=== PATIENT | female | born 1980 | race Caucasian/White ===

== ENCOUNTER 2018-01-04 18:11 | Inpatient (IN) | payer MEDICAID ==
[~2018-01-04] VITALS: Ht 162.6 cm; Wt 128.4 kg
[~2018-01-04 18:11] MED LIST: FERR325E14 PO
[2018-01-04] MEDS ORDERED: PREN-380 PO (19:12)
[2018-01-04] MEDS ORDERED: PROMETHAZINE 25 MG/ML VIAL IVP PRN (19:15)
[2018-01-04] MEDS ORDERED: METHYLERGONOVINE 0.2 MG/ML AMP IM PRN (19:15)
[2018-01-04] MEDS ORDERED: OXYTOCIN 20 UNITS in LACTATED RINGERS 1,000 ML IV SCH ×2 (19:15→19:19)
[2018-01-04] MEDS ORDERED: NALBUPHINE 10 MG/ML AMP IVP PRN ×2 (19:15→19:20)
[2018-01-04] MEDS ORDERED: OXYTOCIN 10 UNITS/ML VIAL IM SCH (19:15)
[2018-01-04] MEDS ORDERED: CARBOPROST 250 MCG/ML AMP IM PRN (19:15)
[2018-01-04 20:00] LABS: BASOPHILS % (AUTO) 0.3 % (0.0-2.0); EOSINOPHILS # (AUTO) 0.2 K/uL (0-0.4); EOSINOPHILS % (AUTO) 1.9 % (0.0-4.0); HEMATOCRIT 36.2 % (36-48); HEMOGLOBIN 11.5 g/dL (12.0-16.0); LYMPHOCYTES # (AUTO) 2.4 K/uL (2.5-16.5); LYMPHOCYTES % (AUTO) 29.6 % (20.5-51.1); MEAN CORPUSCULAR HEMOGLOBIN 26 pg (27-31); MEAN CORPUSCULAR HGB CONC 32 g/dL (33-37); MEAN CORPUSCULAR VOLUME 81.2 fL (80-94); MONOCYTES # (AUTO) 0.5 K/uL (0.8-1.0); MONOCYTES % (AUTO) 6.1 % (1.7-9.3); NEUTROPHILS % (AUTO) 62.1 % (42.2-75.2); PLATELET COUNT (AUTO) 256 K/uL (140-450); RED BLOOD CELL COUNT(AUTO) 4.46 MIL/uL (4.20-5.40); RED CELL DISTRIBUTION WIDTH 15.8 % (11.6-13.7); WHITE BLOOD COUNT (AUTO) 8.1 K/uL (4.8-10.8)
[2018-01-04 20:15] LABS: APPEARANCE,URINE SL CLOUDY (CLEAR); BILIRUBIN,URINE NEGATIVE (NEGATIVE); BLOOD, URINE NEGATIVE (NEGATIVE); COLOR,URINE YELLOW (YELLOW); LEUKOCYTE ESTERASE ,URINE TRACE (NEGATIVE); NITRITE, URINE NEGATIVE (NEGATIVE); PH,URINE 5.5 (5.0-9.0); UGLUCOSE NEGATIVE (NEGATIVE)
[2018-01-04 20:17] LABS: RBC,URINE 0-5 (RARE) /HPF (0-5)
[2018-01-04 20:19] LABS: ALBUMIN 2.5 g/dL (3.4-5.0); ANION GAP 13.7 (8-16); CARBON DIOXIDE 22.1 mmol/L (21-32); CREATININE 0.6 mg/dL (0.6-1.3); POTASSIUM 3.8 mmol/L (3.5-5.1); TOTAL BILIRUBIN 0.1 mg/dL (0.0-1.0)
[2018-01-04 21:49] VITALS: BP 110/53
[2018-01-05] MEDS: LACTATED RINGERS 1,000 ML IV SCH ×2 (01:00→08:19)
[2018-01-05] MEDS ORDERED: OXYTOCIN 20 UNITS/LR PREMIX 1,000 ML IV ONE (02:58)
[2018-01-05] MEDS ORDERED: NALBUPHINE 10 MG/ML AMP ONE ×2 (09:45→14:45)
[2018-01-05] MEDS ORDERED: PROMETHAZINE 25 MG/ML VIAL ONE (09:46)
[2018-01-05] MEDS ORDERED: LIDOCAINE 2% 1000 MG/50 ML VIAL INJ SCH (14:30)
[2018-01-05] MEDS ORDERED: MORPHINE SULFATE 4 MG/ML SYR IVP PRN (14:30)
[2018-01-05] MEDS ORDERED: OXYTOCIN 10 UNITS/ML VIAL ONE (14:40)
[2018-01-05] MEDS ORDERED: LIDOCAINE 2% 1000 MG/50 ML VIAL INJ ONE (14:41)
[2018-01-05] MEDS ORDERED: NALOXONE 0.4 MG/ML VIAL ONE (14:59)
[2018-01-05] MEDS ORDERED: OXYTOCIN 20 UNITS in LACTATED RINGERS 1,000 ML IV SCH (20:31)
[2018-01-05] MEDS ORDERED: MEASLES, MUMPS, AND RUBELLA 1 VIAL SQVAC PRN (20:35)
[2018-01-05] MEDS ORDERED: IBUPROFEN 600 MG TAB PO PRN (20:35)
[2018-01-06] MEDS: ACETAMINOPHEN 325 MG TAB PO PRN (00:35)
--- NOTE | 2018-01-06 08:26 | NUR ---
PATIENT HAS BEEN SCREENED AND CATEGORIZED LOW NUTRITION RISK. PATIENT WILL BE SEEN WITHIN 7 DAYS OF ADMISSION. 01/11/18 BARAK MARINA MBA, RD
[2018-01-06 08:34] LABS: BASOPHILS # (AUTO) 0.1 K/uL (0.00-0.22); BASOPHILS % (AUTO) 0.7 % (0.0-2.0); EOSINOPHILS # (AUTO) 0.2 K/uL (0-0.4); EOSINOPHILS % (AUTO) 1.8 % (0.0-4.0); HEMATOCRIT 35.8 % (36-48); HEMOGLOBIN 11.6 g/dL (12.0-16.0); LYMPHOCYTES # (AUTO) 2.9 K/uL (2.5-16.5); LYMPHOCYTES % (AUTO) 30.1 % (20.5-51.1); MEAN CORPUSCULAR HEMOGLOBIN 26 pg (27-31); MEAN CORPUSCULAR HGB CONC 32 g/dL (33-37); MEAN CORPUSCULAR VOLUME 81.1 fL (80-94); MONOCYTES # (AUTO) 0.6 K/uL (0.8-1.0); MONOCYTES % (AUTO) 5.8 % (1.7-9.3); NEUTROPHILS # (AUTO) 5.8 K/uL (1.8-7.7); NEUTROPHILS % (AUTO) 61.6 % (42.2-75.2); PLATELET COUNT (AUTO) 229 K/uL (140-450); RED BLOOD CELL COUNT(AUTO) 4.42 MIL/uL (4.20-5.40); RED CELL DISTRIBUTION WIDTH 15.8 % (11.6-13.7); WHITE BLOOD COUNT (AUTO) 9.5 K/uL (4.8-10.8)
[2018-01-07] MEDS: ACETAMINOPHEN 325 MG TAB PO PRN (06:37)
== END 2018-01-07 15:25 | disposition home or self-care (01) | DRG 560 ==
LOC: MLD 18:11 → MFCC 01-05 18:22
PROVIDERS: ADMIT Obstetrics & Gynecology; ATTEND Obstetrics & Gynecology
PROC: 10E0XZZ Delivery of Products of Conception, External Approach (ICD-10-PCS; principal; 2018-01-05)
PROC: 10907ZC Drainage of Amniotic Fluid, Therapeutic from Products of Conception, Via Natural or Artificial Opening (ICD-10-PCS; 2018-01-05)
PROC: 3E033VJ Introduction of Other Hormone into Peripheral Vein, Percutaneous Approach (ICD-10-PCS; 2018-01-05)
PROC: 3E0234Z Introduction of Serum, Toxoid and Vaccine into Muscle, Percutaneous Approach (ICD-10-PCS; 2018-01-05)
DX: O69.81X0 Labor and delivery complicated by cord around neck, without compression, not applicable or unspecified (principal); Z68.42 Body mass index [BMI] 45.0-49.9, adult; O99.214 Obesity complicating childbirth; O09.523 Supervision of elderly multigravida, third trimester; Z37.0 Single live birth; Z3A.38 38 weeks gestation of pregnancy; E66.01 Morbid (severe) obesity due to excess calories; Z83.3 Family history of diabetes mellitus; Z84.89 Family history of other specified conditions; Z23 Encounter for immunization
CPT/HCPCS: 36415; 51702; 59409; 76805; 80053; 81001; 85025; 86592; 86886; 86900; 86901; 87086; 90715; J2001; J2300; J2310; J2550; J2590; J7120; Q0092

== ENCOUNTER 2019-07-06 10:19 | Observation (INO) | payer MEDICAID ==
[~2019-07-06] VITALS: Ht 157.5 cm; Wt 122.5 kg
[~2019-07-06 10:19] MED LIST changes: +PREN-380 PO
[2019-07-06 12:24] VITALS: BP 110/69
== END 2019-07-06 14:00 | disposition home or self-care (01) ==
LOC: MLD 10:19
PROVIDERS: ADMIT Obstetrics & Gynecology; ATTEND Obstetrics & Gynecology
DX: O99.89 Other specified diseases and conditions complicating pregnancy, childbirth and the puerperium (principal); M54.5 Low back pain; O09.523 Supervision of elderly multigravida, third trimester; O26.893 Other specified pregnancy related conditions, third trimester; R10.9 Unspecified abdominal pain; Z3A.38 38 weeks gestation of pregnancy
CPT/HCPCS: 59025; 76805; 81000; G0378; Q0092

== ENCOUNTER 2019-07-11 17:51 | Inpatient (IN) | payer MEDICAID ==
[~2019-07-11] VITALS: Ht 152.4 cm; Wt 122.5 kg
[2019-07-11] MEDS ORDERED: PROMETHAZINE 25 MG/ML VIAL IVP PRN (18:40)
[2019-07-11] MEDS ORDERED: OXYTOCIN 10 UNITS/ML VIAL IM SCH (18:40)
[2019-07-11] MEDS ORDERED: METHYLERGONOVINE 0.2 MG/ML AMP IM PRN (18:40)
[2019-07-11] MEDS ORDERED: CARBOPROST 250 MCG/ML AMP IM PRN (18:40)
[2019-07-11 19:07] LABS: BASOPHILS % (AUTO) 0.4 % (0.0-2.0); EOSINOPHILS # (AUTO) 0.1 K/uL (0-0.4); HEMATOCRIT 33.8 % (36-48); HEMOGLOBIN 10.8 g/dL (12.0-16.0); LYMPHOCYTES # (AUTO) 2.5 K/uL (2.5-16.5); LYMPHOCYTES % (AUTO) 30.8 % (20.5-51.1); MEAN CORPUSCULAR HEMOGLOBIN 25 pg (27-31); MEAN CORPUSCULAR HGB CONC 32 g/dL (33-37); MEAN CORPUSCULAR VOLUME 79.6 fL (80-94); MONOCYTES # (AUTO) 0.6 K/uL (0.8-1.0); MONOCYTES % (AUTO) 7.6 % (1.7-9.3); NEUTROPHILS % (AUTO) 60.2 % (42.2-75.2); PLATELET COUNT (AUTO) 289 K/uL (140-450); RED BLOOD CELL COUNT(AUTO) 4.25 MIL/uL (4.20-5.40); RED CELL DISTRIBUTION WIDTH 14.6 % (11.6-13.7); WHITE BLOOD COUNT (AUTO) 8.3 K/uL (4.8-10.8)
[2019-07-11] MEDS ORDERED: MISOPROSTOL 25 MCG TAB VG SCH (20:00)
[2019-07-11 20:17] VITALS: BP 136/84
[2019-07-11 21:09] LABS: BILIRUBIN,URINE 1+ (NEGATIVE); BLOOD, URINE TRACE-I (NEGATIVE); COLOR,URINE YELLOW (YELLOW); LEUKOCYTE ESTERASE ,URINE TRACE (NEGATIVE); NITRITE, URINE NEGATIVE (NEGATIVE); PH,URINE 5.5 (5.0-9.0); UGLUCOSE NEGATIVE (NEGATIVE)
[2019-07-11 21:22] LABS: APPEARANCE,URINE SLIGHTLY CLOUDY (CLEAR)
[2019-07-11 22:27] LABS: RBC,URINE 0-5 /HPF (0-5)
[2019-07-12] MEDS ORDERED: NALBUPHINE 10 MG/ML AMP IVP PRN (01:25)
[2019-07-12] MEDS: LACTATED RINGERS 1,000 ML IV SCH ×2 (02:39→03:52)
[2019-07-12] MEDS ORDERED: OXYTOCIN 20 UNITS in LACTATED RINGERS 1,000 ML IV SCH ×2 (04:00→16:43)
[2019-07-12] MEDS ORDERED: OXYTOCIN 20 UNITS/LR PREMIX 1,000 ML IV ONE (04:17)
[2019-07-12] MEDS ORDERED: EPIDURAL KEYS MC ONE (05:58)
[2019-07-12] MEDS ORDERED: ROPIVACAINE 0.2%/NS PREMIX 200 ML EPI ONE (06:55)
--- NOTE | 2019-07-12 08:43 | NUR ---
PATIENT HAS BEEN SCREENED AND CATEGORIZED LOW NUTRITION RISK. PATIENT WILL BE SEEN WITHIN 7 DAYS OF ADMISSION. 07/18/19 BARAK MARINA MBA, RD
[2019-07-12] MEDS ORDERED: LIDOCAINE 1% 500 MG/50 ML VIAL ONE (10:42)
[2019-07-12] MEDS ORDERED: ACETAMINOPHEN 325 MG TAB PO PRN (16:45)
[2019-07-12] MEDS ORDERED: IBUPROFEN 600 MG TAB PO PRN (16:45)
[2019-07-12] MEDS ORDERED: BISACODYL 5 MG TABEC PO PRN (16:45)
[2019-07-12] MEDS ORDERED: MEASLES, MUMPS, AND RUBELLA 1 VIAL SQVAC PRN (16:45)
[2019-07-12] MEDS ORDERED: DOCUSATE SODIUM 100 MG GELCAP PO PRN (16:45)
[2019-07-13 08:54] LABS: BASOPHILS # (AUTO) 0.1 K/uL (0.00-0.22); EOSINOPHILS # (AUTO) 0.2 K/uL (0-0.4); EOSINOPHILS % (AUTO) 2.1 % (0.0-4.0); HEMATOCRIT 32.6 % (36-48); HEMOGLOBIN 10.8 g/dL (12.0-16.0); LYMPHOCYTES # (AUTO) 3.1 K/uL (2.5-16.5); LYMPHOCYTES % (AUTO) 34.3 % (20.5-51.1); MEAN CORPUSCULAR HEMOGLOBIN 25 pg (27-31); MEAN CORPUSCULAR HGB CONC 33 g/dL (33-37); MEAN CORPUSCULAR VOLUME 76.9 fL (80-94); MONOCYTES # (AUTO) 0.4 K/uL (0.8-1.0); MONOCYTES % (AUTO) 4.9 % (1.7-9.3); NEUTROPHILS # (AUTO) 5.1 K/uL (1.8-7.7); NEUTROPHILS % (AUTO) 57.7 % (42.2-75.2); PLATELET COUNT (AUTO) 264 K/uL (140-450); RED BLOOD CELL COUNT(AUTO) 4.24 MIL/uL (4.20-5.40); RED CELL DISTRIBUTION WIDTH 14.8 % (11.6-13.7); WHITE BLOOD COUNT (AUTO) 8.9 K/uL (4.8-10.8)
[2019-07-13] MEDS ORDERED: INFLUENZA VACCINE QUAD 0.5 ML SYR IMVAC PRN (23:55)
== END 2019-07-14 16:43 | disposition home or self-care (01) | DRG 560 ==
LOC: MFCC 17:51 → MLD 20:49 → MFCC 07-12 20:57
PROVIDERS: ADMIT Obstetrics & Gynecology; ATTEND Obstetrics & Gynecology
PROC: 10E0XZZ Delivery of Products of Conception, External Approach (ICD-10-PCS; 2019-07-12)
PROC: 3E0R3BZ Introduction of Anesthetic Agent into Spinal Canal, Percutaneous Approach (ICD-10-PCS; 2019-07-12)
PROC: 00HU33Z Insertion of Infusion Device into Spinal Canal, Percutaneous Approach (ICD-10-PCS; 2019-07-12)
PROC: 3E033VJ Introduction of Other Hormone into Peripheral Vein, Percutaneous Approach (ICD-10-PCS; 2019-07-12)
PROC: 3E02340 Introduction of Influenza Vaccine into Muscle, Percutaneous Approach (ICD-10-PCS; principal; 2019-07-14)
DX: O69.1XX0 Labor and delivery complicated by cord around neck, with compression, not applicable or unspecified (principal); E66.01 Morbid (severe) obesity due to excess calories; O99.214 Obesity complicating childbirth; Z37.0 Single live birth; Z23 Encounter for immunization; Z3A.39 39 weeks gestation of pregnancy
CPT/HCPCS: 36415; 51702; 59409; 81001; 85025; 86592; 86886; 86900; 86901; 87086; 90715; J2001; J2590; J2795; J7120